=== PATIENT | female | born 1995 | race African-American/Black ===

== ENCOUNTER 2021-04-24 15:16 | Emergency (ER) | payer OTHER ==
[2021-04-24 15:33] VITALS: BP 119/85; PULSE 112; RESP 19; TEMP 99.1
[2021-04-24] MEDS ORDERED: HYDROcodone/APAP 5-325MG 1 EACH TAB PO STA (16:20)
[2021-04-24] MEDS ORDERED: CEPHALEXIN 500 MG CAP PO STA (16:31)
[2021-04-24] MEDS ORDERED: ACET/COD 300 MG/30 MG STARTER PACK 6 TAB BTL PO STA (16:31)
--- NOTE | 2021-04-24 16:31 | ED ---
General Adult HPI - General Chief complaint: Skin/Abscess/Foreign Body Stated complaint: lump on breast Time Seen by Provider: 04/24/21 16:12 Source: patient, RN notes reviewed Mode of arrival: ambulatory Limitations: no limitations - History of Present Illness Initial comments: 26-year-old female presents to the emergency room with complaints of left breast pain. Patient states that the pain is been there for one week. She states that she had something similar on the right breast in the past that resolved on its own. She states that there is no wound or drainage and she has not had any injury. She denies any fevers, nausea vomiting or diarrhea. She denies any medical history. She takes Seroquel for insomnia. She states her last menstrual period was 2 months ago and she has been irregular she denies any risk of . She is a nonsmoker -: week(s) (1) Location: left (Breast) Radiation: non-radiation Severity scale (1-10): 7 Quality: constant Consistency: constant Improves with: none Worsens with: movement, other (Palpation) Associated Symptoms: denies other symptoms Treatments Prior to Arrival: heat therapy - Related Data Previous Rx's Medication Instructions Recorded Acetaminophen-Codeine 300-30mg 1 - 2 each PO Q4HR PRN #40 tab 07/10/14 [Tylenol w/codeine #3] Ibuprofen [Motrin] 600 mg PO Q6HR PRN #40 tab 07/10/14 Cephalexin [Keflex] 500 mg PO Q6HR 7 Days #28 cap 04/24/21 Allergies Allergy/AdvReac Type Severity Reaction Status Date / Time cinnamon Allergy Itching Verified 07/08/14 07:43 Last menstrual period: 02/22/21 Review of Systems ROS Statement: Those systems with pertinent positive or pertinent negative responses have been documented in the HPI. ROS Other: All systems not noted in ROS Statement are negative. Past Medical History Past Medical History: No Reported History History of Any Multi-Drug Resistant Organisms: None Reported Past Surgical History: No Surgical Hx Reported Past Anesthesia/Blood Transfusion Reactions: No Reported Reaction Past Psychological History: No Psychological Hx Reported Smoking Status: Never smoker - Past Family History Mother Family Medical History: Diabetes Mellitus, Hypertension Father Family Medical History: Cancer General Exam Limitations: no limitations General appearance: alert, in no apparent distress Head exam: Present: atraumatic, normocephalic, normal inspection Eye exam: Present: normal appearance, EOMI ENT exam: Present: normal exam, normal oropharynx, mucous membranes moist Neck exam: Present: normal inspection, full ROM. Absent: tenderness, meningismus, lymphadenopathy Respiratory exam: Present: normal lung sounds bilaterally. Absent: respiratory distress, wheezes, rales, rhonchi, stridor, chest wall tenderness, accessory muscle use Cardiovascular Exam: Present: tachycardia GI/Abdominal exam: Present: soft, normal bowel sounds. Absent: distended, tenderness, guarding, rebound, rigid Extremities exam: Present: normal capillary refill. Absent: pedal edema Back exam: Present: normal inspection, full ROM. Absent: tenderness, CVA tenderness (R), CVA tenderness (L), rash noted Neurological exam: Present: alert, oriented X3 Psychiatric exam: Present: normal affect, normal mood Skin exam: Present: warm, dry, normal color, erythema (Left breast, 6cm x 4cm erythema with no induration or fluctuance) Course Vital Signs 04/24/21 15:31 Temperature 99.1 F Pulse Rate 112 H Respiratory 19 Rate Blood Pressure 119/85 O2 Sat by Pulse 97 Oximetry Medical Decision Making - Medical Decision Making Patient is afebrile and has one week of left breast tenderness with redness. Th ere is no area of induration or fluctuance. She has no medical history, is a nonsmoker and denies any . Be placed on antibiotics for cellulitis and directed to follow up with her primary care doctor. Case discussed with Dr. Gan. Disposition Clinical Impression: Cellulitis Disposition: HOME SELF-CARE Condition: Good Instructions (If sedation given, give patient instructions): Cellulitis (ED) Additional Instructions: Take medication as prescribed follow up with the primary care doctor in 1 week. Warm compresses for comfort. Return to emergency room with any new or worsening symptoms including increased redness, pain or swelling or fevers. Prescriptions: Cephalexin [Keflex] 500 mg PO Q6HR 7 Days #28 cap Is patient prescribed a controlled substance at d/c from ED?: No Referrals: None,Stated [Primary Care Provider] - 1-2 days Time of Disposition: 16:30
== END 2021-04-24 17:02 | disposition home or self-care (01) ==
LOC: EC 15:16
DX: N61.0 Mastitis without abscess (principal); Z79.1 Long term (current) use of non-steroidal anti-inflammatories (NSAID)
CPT/HCPCS: 99283

== ENCOUNTER 2023-05-12 15:45 | Inpatient (IN) | payer BC, OTHER ==
[2023-05-12] MEDS ORDERED: METHYLERGONOVINE 0.2 MG/ML 1 ML AMP IM PRN (16:12)
[2023-05-12] MEDS ORDERED: OXYTOCIN 10 UNIT/ML 1 ML VIAL IM PRN (16:12)
[2023-05-12] MEDS ORDERED: NALBUPHINE 10 MG/ML (10 ML MDV) IV PRN (16:12)
[2023-05-12] MEDS ORDERED: CARBOPROST TROMETHAMINE 250 MCG/ML 1 ML AMP IM PRN (16:12)
[2023-05-12] MEDS ORDERED: TERBUTALINE 1 MG/ML VIAL SQ PRN (16:12)
[2023-05-12] MEDS ORDERED: miSOPROStoL 200 MCG TAB PO PRN (16:12)
[2023-05-12] MEDS ORDERED: LIDOCAINE 0.5% (PF) 5 MG/ML (50 ML SDV) SQ PRN (16:12)
[2023-05-12] MEDS ORDERED: TRANEXAMIC 1,000 MG/100ML-NACL 1,000 MG in EMPTY BAG 1 BAG IV PRN (16:12)
[2023-05-12] MEDS: LACTATED RINGERS 1,000 ML IV SCH (16:33)
[2023-05-12 16:57] LABS: Basophils % (A) 0 %; Eosinophils # (A) 0.1 k/uL (0-0.7); Eosinophils % (A) 1 %; HCT 34.3 % (34.0-46.0); HGB 11.5 gm/dL (11.4-16.0); Lymphocytes # (A) 1.1 k/uL (1.0-4.8); Lymphocytes % (A) 6 %; MCH 28.9 pg (25.0-35.0); MCHC 33.5 g/dL (31.0-37.0); MCV 86.3 fL (80.0-100.0); Mean Platelet Volume 7.6; Monocytes # (A) 0.7 k/uL (0-1.0); Monocytes % (A) 4 %; Neutrophils # (A) 15.6 k/uL (1.3-7.7); Neutrophils % (A) 88 %; Platelet Count 235 k/uL (150-450); RBC 3.97 m/uL (3.80-5.40); RDW 13.3 % (11.5-15.5); WBC 17.7 k/uL (3.8-10.6)
--- NOTE | 2023-05-12 17:28 | P.HPOB ---
History of Present Illness H&P Date: 05/12/23 Chief Complaint: 22 and one sevenths weeks, active labor The patient is a 28-year-old 6 para 1041 who presents the hospital with dating parameters from 3 weeks ago by ultrasound at 19 weeks currently dating this at 22 and one sevenths weeks. She has had no local care and reports that she was not certain she was until she had the ultrasound performed at [facility]. She denies any history of infections or trauma recently. On labor and delivery, she presents in active labor and is found to be 5 cm dilated with a bulging bag of water through the cervix. Bedside ultrasound performed on labor and delivery confirms an estimated gestational age of 22 and one sevenths weeks. 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 She denies any particular problems to this point in . She did develop an upper respiratory tract infection last weekend and then began having some spotting and increased mucous discharge last night at approximately 0300. She initially presented to [facility] who then transferred the patient to our emergency department and to labor and delivery. Obstetrical history: 6 para 1041 with 1 term delivery as above and 4 early miscarriages. Current statistics are confined to history of present illness. Laboratory has been done at [facility] and is being sorted as we speak. Gynecologic history: Unremarkable per the patient. Review of Systems Review of systems is confined to history of present illness. Past Medical History Past Medical History: No Reported History History of Any Multi-Drug Resistant Organisms: None Reported Past Surgical History: No Surgical Hx Reported Past Anesthesia/Blood Transfusion Reactions: No Reported Reaction Past Psychological History: Anxiety, Bipolar, Depression Smoking Status: Former smoker - Past Family History Mother Family Medical History: Diabetes Mellitus, Hypertension Father Family Medical History: Cancer Medications and Allergies Home Medications Medication Instructions Recorded Confirmed Type No Known Home Medications 05/12/23 05/12/23 History Allergies Allergy/AdvReac Type Severity Reaction Status Date / Time cinnamon Allergy Itching Verified 05/12/23 16:11 Exam Intake and Output 05/12/23 05/12/23 05/12/23 06:59 14:59 22:59 Other: Weight 107.048 kg In general, this is a well-developed, moderately obese female in some discomfort with labor and emotional distress. Her heart has a regular rhythm and rate without murmur. Her lungs clear to auscultation bilaterally in all vidal. Her abdomen is gravid with an appropriate fundal height for 22 weeks. It is otherwise nondistended with normal active bowel sounds and is otherwise soft and nontender. Her extremities without any cyanosis, clubbing, or edema and are nontender to palpation bilaterally. Digital cervical examination performed by the nursing staff demonstrates her cervix to be 5 cm dilated with a bulging bag of water. Results Result Diagrams: 05/12/23 16:40 Abnormal Lab Results - Last 24 Hours (Table) 05/12/23 Range/Units 16:40 WBC 17.7 H (3.8-10.6) k/uL Neutrophils # 15.6 H (1.3-7.7) k/uL Assessment and Plan (1) No care in current Current Visit: Yes Status: Acute Code(s): O09.30 - SUPRVSN OF PREG W INSUFFICIENT ANTENAT CARE, UNSP TRIMESTER SNOMED Code(s): 460983810 (2) Active labor Current Visit: Yes Status: Acute Code(s): O60.10X0 - LABOR W DELIVERY, UNSP TRIMESTER, UNSP SNOMED Code(s): 9551103 Plan: The patient is admitted for active management of labor. She is not a candidate for tocolyse was given her dilation and cannot be transferred for the same reaso n, instability for transfer. Ultrasound demonstrates vertex presentation. We will plan for vaginal delivery. labs will be drawn. The pediatric team is ready to evaluate for the possibility of an accurate dating and true viability.
--- NOTE | 2023-05-12 17:43 | US ---
EXAMINATION TYPE: US OB >= 14 wk fetus DATE OF EXAM: 05/12/2023 COMPARISON: None CLINICAL INDICATION: Female, 28 years old with history of labor; TECHNIQUE: Transabdominal (TA) GESTATIONAL AGE / DATING Physician Established: (22 weeks/1 days) EDC: 09/14/23 Dates by Current Scan: (22 weeks/1 days) EDC: 09/14/23 Beta HCG (if available): SURVEY IUP: Single PLACENTA: Posterior PREVIA: Limited evaluation due to circumstances NANCY: 16.96 cm Normal CERVICAL LENGTH (transabdominal: norm > 3.0cm): Unable to assess: patient in labor BIOMETRY PRESENTATION: Vertex BPD: 5.23 cm 22 weeks / 0 days HC: 19.58 cm 21 weeks / 6 days AC: 17.06 cm 22 weeks / 1 days FL: 3.77 cm 22 weeks / 1 days ESTIMATED WEIGHT IN GRAMS: 468 grams ESTIMATED WEIGHT IN LBS/OZ: 1 lbs. 1 oz. WEIGHT PERCENTAGE BASED ON ESTABLISHED DATES: 37% HC/AC: 1.15 Normal FL/AC: 22 Normal HEART RATE: 170 bpm RHYTHM: Normal Patient in labor - physician requested dates. Physician given preliminary measurements during time of exam. IMPRESSION: Single live intrauterine gestation with ultrasound age of 22 weeks 1 day. Additional information as d escribed above.
--- NOTE | 2023-05-12 18:38 | P.PROBDLV ---
Vaginal Delivery Note - . Vaginal Delivery Note: The patient is a 28-year-old 6 para 1041 admitted at 22 and one sevenths weeks by a 19 week ultrasound, dating roughly confirmed by ultrasound here in the hospital. She presented in active labor dilated to 5 cm with a bulging bag of water into the vagina. Ultrasound confirmed vertex presentation. She additionally carries a history of a previous full-term delivery 8 years ago and 5 early miscarriages. The patient did request that everything be done as the gestational age is uncertain. monitoring during the active labor process demonstrated heart rate in the 170s primarily. She progressed to approximately 6 cm and had significant pressure and urge to push. She did appear to have spontaneous rupture of membranes earlier but had a significant amount of fluid still noted in the bag of water at the cervix which was then ruptured artificially demonstrating a fair amount of clear fluid. Over the next 2 contractions she then pushed to a normal spontaneous vaginal delivery of a live female , weight and Apgars are pending at this time as resuscitation is ongoing. She subsequently had spontaneous delivery of a grossly normal placenta the membranes and surface were somewhat opaque. There was a grossly normal three-vessel cord inserted near the margin of the placental disc. There was no obvious evidence of placental abruption though there was some odor consistent with probable chorioamnionitis. There were no lacerations of the perineum, vagina, or cervix. The patient is resting comfortably in recovery and grieving appropriately. The remains under resuscitative measures in the nursery. Estimated blood loss was approximately 150 mL. There were no complications aside from the and probable previable nature of the delivery. The does appear phenotypically normal.
[2023-05-12] MEDS ORDERED: HYDROCORTISONE 2.5% RECTAL CREAM 30 GM TUBE RECTAL PRN (18:53)
[2023-05-12] MEDS ORDERED: LANOLIN CREAM 5 GM TUBE TOPICAL PRN (18:53)
[2023-05-12] MEDS ORDERED: BENZOCAINE/MENTHOL SPRAY 1 GM/SPRAY AEROSOL TOPICAL PRN (18:53)
[2023-05-12] MEDS ORDERED: diphenhydrAMINE 50 MG CAP PO PRN (18:53)
[2023-05-12] MEDS ORDERED: ZOLPIDEM 5 MG TAB PO PRN (18:53)
[2023-05-12] MEDS ORDERED: diphenhydrAMINE 25 MG CAP PO PRN (18:53)
[2023-05-12] MEDS ORDERED: SIMETHICONE 80 MG CHEWABLE PO PRN (18:53)
[2023-05-12] MEDS ORDERED: diphenhydrAMINE 50 MG/ML 1 ML VIAL IVP PRN ×2 (18:53)
[2023-05-12] MEDS ORDERED: OXYTOCIN 30 UNITS/500 ML NS 30 UNIT in SALINE 1 500ML.BAG IV SCH (19:00)
[2023-05-12] MEDS: ACETAMINOPHEN TAB 325 MG TAB PO PRN (19:23)
[2023-05-12] MEDS: IBUPROFEN 600 MG TAB PO PRN (20:52)
[2023-05-13] MEDS: ACETAMINOPHEN TAB 325 MG TAB PO PRN ×2 (00:05→09:02)
[2023-05-13] MEDS: SENNOSIDES-DOCUSATE SODIUM 1 EACH TAB PO SCH ×2 (00:08→09:02)
[2023-05-13 03:28] LABS: Hepatitis B Surface Antigen Nonreactive
[2023-05-13] MEDS: IBUPROFEN 600 MG TAB PO PRN (04:31)
[2023-05-13] MEDS: LACTATED RINGERS 1,000 ML IV SCH (05:39)
[2023-05-13 05:42] LABS: Amphetamine Screen,Urine Not Detected (NotDetected); Appearance,Urine Clear (Clear); Bacteria,Urine Rare /hpf; Barbiturate Screen,Urine Not Detected (NotDetected); Benzodiazepines Screen,Urine Not Detected (NotDetected); Bilirubin,Urine Negative (Negative); Blood,Urine Large (Negative); Cocaine Screen,Urine Not Detected (NotDetected); Color,Urine Yellow; Glucose,Urine (UA) Trace (Negative); Ketones,Urine 1+ (Negative); Leukocyte Esterase,Urine Moderate (Negative); Methadone Screen, Urine Not Detected (NotDetected); Mucus,Urine Occasional /hpf; Nitrite,Urine Negative (Negative); Opiate Screen,Urine Detected (NotDetected); Oxycodone Screen, Urine Not Detected (NotDetected); Phencyclidine Screen,Urine Not Detected (NotDetected); Protein,Urine 1+ (Negative); RBC,Urine >182 /hpf (0-5); Specific Gravity,Urine 1.035 (1.001-1.035); Squamous Epithelial Cell,Urine <1 /hpf (0-4); Tricyclic Antidepressant,Urine Not Detected (NotDetected); Urn Cannabinoid Scrn Not Detected (NotDetected); WBC,Urine 21 /hpf (0-5)
[2023-05-13 07:46] LABS: HIV 2 AB Non-Reactive (Non-Reactive); HIV AB P24 Non-Reactive (Non-Reactive); HIV P24 AG Non-Reactive (Non-Reactive)
[2023-05-13 08:53] VITALS: BP 94/52; PULSE 90; RESP 14; TEMP 98.1
--- NOTE | 2023-05-13 09:36 | P.DS ---
Providers Date of admission: 05/12/23 16:20 Expected date of discharge: 05/13/23 Attending physician: Jesus Turner Primary care physician: Stated None - Discharge Diagnosis(es) (1) No care in current Current Visit: Yes Status: Acute (2) Active labor Current Visit: Yes Status: Acute (3) Normal spontaneous vaginal delivery Current Visit: Yes Status: Acute Hospital Course: The patient is a 28-year-old 6 para 1041 admitted to the hospital at 22 and one sevenths weeks as established by 19 week ultrasound. She is admitted in active labor with advanced cervical dilation at 5 cm and a bulging bag of water. As the gestational age was somewhat uncertain, all measures were taken to evaluate the for viability including monitoring of heart turns during labor. Delivery was inevitable at the time of presentation and transferred is not a possibility nor were steroids of any value. On labor and delivery, after the arrival of her significant other, artificial rupture of membranes was carried out demonstrating clear fluid though there was otorrhea present consistent with probable chorioamnionitis. She shortly thereafter delivered a live female weighing 1 lb. 0 oz., 455 g, with Apgars of 2 at 1 minute, 2 at 5 minutes, 1 at 10 minutes. The approximately 1- 1/2 hours after delivery and never made any effective respiratory efforts. Ef forts at resuscitation were undertaken for some time after delivery. The placenta was delivered spontaneously and was sent for pathological evaluation. The patient's course was essentially unremarkable as she remained afebrile with normal vital signs throughout. She is having significant grieving and has requested that the principal consulting engineer come to visit her. She otherwise was deemed stable for discharge on day #1 was discharged home to follow-up in the office in 2 weeks for recheck. Discharge instructions included calling for any significantly increased bleeding or foul-smelling lochia consistent with an infection, fever, abdominal pain, or anything also concerned her. I also instructed her to call if she is not coping appropriately and requires intervention for depression. I instructed her to have nothing in the vagina for at least 4-6 weeks to include intercourse. She understood her instructions and agrees to follow up as noted above. Maternal blood type is O+ and rubella status is immune. Plan - Discharge Summary New Discharge Prescriptions: No Action No Known Home Medications Discharge Medication List No Known Home Medications 05/12/23 [History] Follow up Appointment(s)/Referral(s): Jesus Turner MD [STAFF PHYSICIAN] - 2 Weeks Discharge Disposition: HOME SELF-CARE
[2023-05-14 14:45] LABS: N. gonorrhoeae,PCR Negative (Negative)
[2023-05-14 15:39] LABS: C. trachomatis,PCR Negative (Negative)
== END 2023-05-13 12:10 | disposition home or self-care (01) | DRG 805 ==
LOC: FBPOP 15:45 → 4FBP 16:20
PROVIDERS: ADMIT Obstetrics & Gynecology; ATTEND Obstetrics & Gynecology
PROC: 10E0XZZ Delivery of Products of Conception, External Approach (ICD-10-PCS; principal; 2023-05-12)
PROC: 10907ZC Drainage of Amniotic Fluid, Therapeutic from Products of Conception, Via Natural or Artificial Opening (ICD-10-PCS; 2023-05-12)
DX: O60.12X0 Preterm labor second trimester with preterm delivery second trimester, not applicable or unspecified (principal); O41.1220 Chorioamnionitis, second trimester, not applicable or unspecified; Z37.0 Single live birth; O34.219 Maternal care for unspecified type scar from previous cesarean delivery; O99.344 Other mental disorders complicating childbirth; F41.9 Anxiety disorder, unspecified; F31.9 Bipolar disorder, unspecified; O99.214 Obesity complicating childbirth; Z3A.22 22 weeks gestation of pregnancy; Z82.49 Family history of ischemic heart disease and other diseases of the circulatory system; Z83.3 Family history of diabetes mellitus; Z87.891 Personal history of nicotine dependence; Z88.8 Allergy status to other drugs, medicaments and biological substances
CPT/HCPCS: 76805; 80306; 81001; 85025; 86762; 86780; 86850; 86900; 86901; 87340; 87390; 87491; 87591; 99213

== ENCOUNTER 2023-07-19 02:31 | Emergency (ER) | payer BC, OTHER ==
[2023-07-19] MEDS ORDERED: MORPHINE SULFATE 4 MG/ML SYRINGE IV STA ×2 (03:38→08:07)
[2023-07-19] MEDS ORDERED: ONDANSETRON 4 MG/2 ML VIAL IVP STA (03:38)
[2023-07-19] MEDS ORDERED: SODIUM CHLORIDE 0.9% 1,000 ML IV STA (03:38)
--- NOTE | 2023-07-19 03:40 | ED ---
General Adult HPI - General Chief complaint: Abdominal Pain Stated complaint: ABD Pain Time Seen by Provider: 07/19/23 03:17 Source: patient Mode of arrival: ambulatory Limitations: no limitations - History of Present Illness Initial comments: Dictation was produced using [employer] dictation software. please excuse any grammatical, word or spelling errors. Chief Complaint: 28-year-old female presents emergency department for abdominal pain History of Present Illness: Patient is 20-year-old female presents emergency department for acute abdominal pain. Symptoms been ongoing for the last 2 days. Associated with nausea and vomiting. Patient denies any history of cholecystectomy or appendectomy. She localizes pain to the epigastric region previous of the back worse with oral intake. Denies any fever or constitutional symptoms. Patient is a history of The ROS documented in this emergency department record has been reviewed and confirmed by me. Those systems with pertinent positive or negative responses have been documented in the HPI. All other systems are other negative and/or noncontributory. - Related Data Previous Rx's Medication Instructions Recorded HYDROcodone/APAP 5-325MG [[place] 1 tab PO Q6HR PRN 3 Days #12 tab 07/19/23 5-325] Allergies Allergy/AdvReac Type Severity Reaction Status Date / Time cinnamon Allergy Itching Verified 07/19/23 03:10 Review of Systems ROS Statement: Those systems with pertinent positive or pertinent negative responses have been documented in the HPI. ROS Other: All systems not noted in ROS Statement are negative. Past Medical History Past Medical History: No Reported History History of Any Multi-Drug Resistant Organisms: None Reported Past Surgical History: No Surgical Hx Reported Past Anesthesia/Blood Transfusion Reactions: No Reported Reaction Past Psychological History: Anxiety, Bipolar, Depression Smoking Status: Former smoker Past Alcohol Use History: Occasional Past Drug Use History: None Reported - Past Family History Mother Family Medical History: Diabetes Mellitus, Hypertension Father Family Medical History: Cancer General Exam - General Exam Comments Initial Comments: PHYSICAL EXAM: General Impression: Alert and oriented x3, acute distress secondary to pain HEENT: Normocephalic atraumatic, extra-ocular movements intact, pupils equal and reactive to light bilaterally, mucous membranes moist. Cardiovascular: Heart regular rate and rhythm Chest: Able to complete full sentences, no retractions, no tachypnea Abdomen: abdomen soft, palpatory tenderness to the epigastric area, non-distende d, no organomegaly Musculoskeletal: Pulses present and equal in all extremities, no peripheral edema Motor: no focal deficits noted Neurological: CN II-XII grossly intact, no focal motor or sensory deficits noted Skin: Intact with no visualized rashes Psych: Normal affect and mood Limitations: no limitations Course Vital Signs 07/19/23 07/19/23 03:08 06:01 Temperature 98 F 98.2 F Pulse Rate 95 85 Respiratory 20 19 Rate Blood Pressure 150/114 137/90 O2 Sat by Pulse 100 99 Oximetry - Reevaluation(s) Reevaluation #1: 07/19/23 08:09 She states that she feels suicidal however states that she will not do anything to herself because she has a family and 9 year-old take care of. She wouldn't bear think of harming herself. Patient does not appear to be psychotic. She has no psychiatric history. Medical Decision Making - Medical Decision Making Was pt. sent in by a medical professional or institution (, PA, IMPROVEMENT INTERN, urgent care, hospital, or [facility]...) When possible be specific @ -No Did you speak to anyone other than the patient for history (EMS, parent, family, police, friend...)? What history was obtained from this source @ -No Did you review nursing and triage notes (agree or disagree)? Why? @ -I reviewed and agree with nursing and triage notes Were old charts reviewed (outside hosp., previous admission, EMS record, old EKG, old radiological studies, urgent care reports/EKG's, [facility] records)? Report findings @ -No old charts were reviewed Differential Diagnosis (chest pain, altered mental status, abdominal pain women, abdominal pain men, vaginal bleeding, musculoskeletal, weakness, fever, dyspnea, syncope, headache, dizziness, GI bleed, back pain, seizure, CVA, palpatations, mental health)? @ -Differential Abdominal Pain Women: Appendicitis, Cholecystitis, diverticulosis, ischemic bowel, pancreatitis, hepatitis, UTI, gastroenteritis, AAA, incarcerated hernia, bowel obstruction, constipation, inflammatory bowel, hepatitis, peptic ulcer disease, splenic infarction, perforated viscus, vulvitis, ovarian torsion, PID, kidney stone, placenta abruption, this is not meant to be an all-inclusive list EKG interpreted by me (3pts min.). @ -None done X-rays interpreted by me (1pt min.). @ -None done CT interpreted by me (1pt min.). @ -None done U/S interpreted by me (1pt. min.). @ -None done What testing was considered but not performed or refused? (CT, X-rays, U/S, labs)? Why? @ -None What meds were considered but not given or refused? Why? @ -None Did you discuss the management of the patient with other professionals (pro fessionals i.e. , PA, IMPROVEMENT INTERN, lab, RT, psych nurse, vp digital marketing social media and crm, parachute rigger, teacher, tax compliance officer, welfare case worker)? Give summary @ -No Was smoking cessation discussed for >3mins.? @ -No Was critical care preformed (if so, how long)? @ -No Were there social determinants of health that impacted care today? How? (Homelessness, low income, unemployed, alcoholism, drug addiction, transporta tion, low edu. Level, literacy, decrease access to med. care, shelter, rehab)? @ -No Was there de-escalation of care discussed even if they declined (Discuss DNR or withdrawal of care, Hospice)? DNR status @ -No What co-morbidities impacted this encounter? (DM, HTN, Smoking, COPD, CAD, Cancer, CVA, ARF, Chemo, Hep., AIDS, mental health diagnosis, sleep apnea, morbid obesity)? @ -None Was patient admitted / discharged? Hospital course, mention meds given and route, prescriptions, significant lab abnormalities, going to OR and other pertinent info. @ -20-year-old female presents emergency Department with epigastric abdominal pain. Vital signs upon arrival are within acceptable limits. Patient did mention to triage nurse that she was suicidal however she states that she will not do something to herself because she has a reason to live. Laboratory evaluation is unremarkable. No leukocytosis. Abdominal labs negative. Urine hCG negative. Patient given GI cocktail. Pending abdominal ultrasound gallbladder ultrasound shows cholelithiasis with fatty liver disease. She reevaluated at bedside in stable medical condition. She did report some slight improvement with GI cocktail. Patient given analgesia. She is given outpatient referral to general surgery for outpatient management of cholelithiasis. Patient also given analgesic prescription medication. Patient discharged. Undiagnosed new problem with uncertain prognosis? @ -No Drug Therapy requiring intensive monitoring for toxicity (Heparin, Nitro, Insulin, Cardizem)? @ -No Were any procedures done? @ -No Diagnosis/symptom? Acute, or Chronic, or Acute on Chronic? Uncomplicated (without systemic symptoms) or Complicated (systemic symptoms)? @ -Abdominal pain Side effects of treatment? @ -No Exacerbation, Progression, or Severe Exacerbation? @ -No Poses a threat to life or bodily function? How? (Chest pain, [place], [place], pneumonia, PE, COPD, DKA, ARF, appy, cholecystitis, CVA, Diverticulitis, Homicidal, Suicidal, threat to staff... and all critical care pts) @ -yes - Lab Data Result diagrams: 07/19/23 04:00 07/19/23 04:00 Lab Results 07/19/23 07/19/23 07/19/23 Range/Units 04:00 04:00 04:00 WBC 9.7 (3.8-10.6) k/uL RBC 4.72 (3.80-5.40) m/uL Hgb 13.3 (11.4-16.0) gm/dL Hct 40.6 (34.0-46.0) % MCV 85.9 (80.0-100.0) fL MCH 28.2 (25.0-35.0) pg MCHC 32.9 (31.0-37.0) g/dL RDW 14.6 (11.5-15.5) % Plt Count 310 (150-450) k/uL MPV 7.7 Neutrophils % 56 % Lymphocytes % 35 % Monocytes % 3 % Eosinophils % 4 % Basophils % 0 % Neutrophils # 5.4 (1.3-7.7) k/uL Lymphocytes # 3.4 (1.0-4.8) k/uL Monocytes # 0.3 (0-1.0) k/uL Eosinophils # 0.4 (0-0.7) k/uL Basophils # 0.0 (0-0.2) k/uL Sodium 139 (137-145) mmol/L Potassium 4.2 (3.5-5.1) mmol/L Chloride 110 H (98-107) mmol/L Carbon Dioxide 19 L (22-30) mmol/L Anion Gap 10 mmol/L BUN 5 L (7-17) mg/dL Creatinine 0.57 (0.52-1.04) mg/dL Est GFR (CKD-EPI)AfAm >90 (>60 ml/min/1.73 sqM) Est GFR (CKD-EPI)NonAf >90 (>60 ml/min/1.73 sqM) Glucose 93 (74-99) mg/dL Calcium 9.4 (8.4-10.2) mg/dL Total Bilirubin 0.5 (0.2-1.3) mg/dL AST 24 (14-36) U/L ALT 18 (4-34) U/L Alkaline Phosphatase 66 (38-126) U/L Total Protein 7.6 (6.3-8.2) g/dL Albumin 4.5 (3.5-5.0) g/dL Lipase 84 (23-300) U/L Urine HCG, Qual Not Detected (Not Detectd) Disposition Clinical Impression: Cholelithiasis Disposition: HOME SELF-CARE Condition: Fair Instructions (If sedation given, give patient instructions): Gallstones (ED) Prescriptions: HYDROcodone/APAP 5-325MG [[place] 5-325] 1 tab PO Q6HR PRN 3 Days #12 tab PRN Reason: Severe Pain Is patient prescribed a controlled substance at d/c from ED?: Yes Referrals: Mathieu Babcock MD [STAFF PHYSICIAN] - 1-2 days Time of Disposition: 08:09
[2023-07-19 04:12] LABS: Basophils % (A) 0 %; Eosinophils # (A) 0.4 k/uL (0-0.7); Eosinophils % (A) 4 %; HCT 40.6 % (34.0-46.0); HGB 13.3 gm/dL (11.4-16.0); Lymphocytes # (A) 3.4 k/uL (1.0-4.8); Lymphocytes % (A) 35 %; MCH 28.2 pg (25.0-35.0); MCHC 32.9 g/dL (31.0-37.0); MCV 85.9 fL (80.0-100.0); Mean Platelet Volume 7.7; Monocytes # (A) 0.3 k/uL (0-1.0); Monocytes % (A) 3 %; Neutrophils # (A) 5.4 k/uL (1.3-7.7); Neutrophils % (A) 56 %; Platelet Count 310 k/uL (150-450); RBC 4.72 m/uL (3.80-5.40); RDW 14.6 % (11.5-15.5); WBC 9.7 k/uL (3.8-10.6)
[2023-07-19 04:28] LABS: ALT 18 U/L (4-34); AST 24 U/L (14-36); African American GFR (CKD) >90 (>60 ml/min/1.73 sqM); Albumin 4.5 g/dL (3.5-5.0); Alkaline Phosphatase 66 U/L (38-126); Anion Gap 10 mmol/L; Blood Urea Nitrogen 5 mg/dL (7-17); Calcium 9.4 mg/dL (8.4-10.2); Carbon Dioxide 19 mmol/L (22-30); Chloride 110 mmol/L (98-107); Glucose 93 mg/dL (74-99); Lipase 84 U/L (23-300); Non-African American GFR(CKD) >90 (>60 ml/min/1.73 sqM); Sodium 139 mmol/L (137-145); Total Bilirubin 0.5 mg/dL (0.2-1.3); Total Protein 7.6 g/dL (6.3-8.2)
[2023-07-19 05:11] LABS: Potassium 4.2 mmol/L (3.5-5.1)
[2023-07-19] MEDS ORDERED: MAG HYDROX/AL HYDROX/SIMETH 30 ML, HYOSCYAMINE ELIXIR 10 ML, LIDOCAINE VISCOUS 2% 10 ML PO STA ×3 (05:57)
[2023-07-19 06:20] VITALS: TEMP 98.2
--- NOTE | 2023-07-19 07:54 | US ---
EXAMINATION TYPE: US abdomen limited DATE OF EXAM: 07/19/2023 COMPARISON: NONE CLINICAL INDICATION: Female, 28 years old with history of epigastric pain; epigastric pain n/v TECHNIQUE: Multiple sonographic images of the right upper quadrant are obtained. 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 Cholelithiasis. 2. Negative sonographic Ferrell sign and no biliary ductal dilatation. 3. Hepatomegaly and echogenic liver consistent with fatty infiltration.
[2023-07-19] MEDS ORDERED: ACET/COD 300 MG/30 MG STARTER PACK 6 TAB BTL PO STA (08:07)
[2023-07-19 08:51] VITALS: BP 139/74; PULSE 78; RESP 18
== END 2023-07-19 08:46 | disposition home or self-care (01) ==
LOC: EC 02:31
DX: K80.20 Calculus of gallbladder without cholecystitis without obstruction (principal); Z86.59 Personal history of other mental and behavioral disorders; Z87.891 Personal history of nicotine dependence; Z88.8 Allergy status to other drugs, medicaments and biological substances
CPT/HCPCS: 36415; 80053; 83690; 85025; 81025; 76705; 99284; 96374; 96375; 96376; 96361 ×5; J2270; J2405